=== PATIENT | female | born 1950 | race Caucasian/White ===

== ENCOUNTER 2019-07-22 10:46 | Emergency (ER) | payer MEDICARE, SELFPAY ==
[2019-07-22 10:47] VITALS: BP 144/72; PULSE 75; RESP 20; TEMP 36.6; O2SAT 97; BMI 31.4
--- NOTE | 2019-07-22 11:10 | ED.DCSUM_ITS ---
- ER Visit Summary Date of Service: 07/22/19 Chief Complaint: [Back pain] History of Present Illness: The patient is a 69 F [presents to the emergency department with complaint of back pain started 2 to 3 days ago. Patient describes a spasm that is intermittent in her low back. Patient states that it was initially kind of a mild tightness in her back over the last 2 to 3 days. Today in the shower she got a bent over to wash her hair and had increased spasm and discomfort. She denies any pain rating down her legs. She denies change in bowel bladder function. She denies weakness in extremities. Patient denies any trauma to her back. She denies urinary symptoms. She denies fever. Patient states that she was moving furniture last week.] Physical Examination: [HEENT-PERRLA, EOMI. Cranial nerves II through XII grossly intact. TMs clear. Mucous membranes moist. No adenopathy. Cardiovascular-regular rate and rhythm without murmur or ectopy Lungs-clear to auscultation, chest wall stable without crepitus or subcu emphysema Abdomen-normoactive bowel sounds, soft, nontender, no rebound or rigidity, no peritoneal signs. No pulsatile masses noted. Back exam-patient has some mild discomfort over the lower lumbar paraspinal muscular bilaterally. There is no tenderness in the midline. Negative straight leg raises. Deep tendon reflexes are plus 2 out of 4 bilaterally at the patella and Achilles. Patient has normal 5 extension. Patient has normal sensation to light touch. Extremities-intact ?4, normal range of motion, normal pulses, atraumatic] Test Results: [None indicated] Emergency Department Course and Treatment: [Was medicated with Dilaudid 0.5 mg IM as well as Valium 4 mg p.o.] Treatment Plan: [Will be given prescription for Robaxin at her request as well a s [place] for pain. Patient advised to follow-up with her primary care physician in 3 to 5 days. Patient advised to use heat to the area. Advised to return if worsening pain, weakness in extremities, change in bowel or bladder function, or conditions worsen anyway.] Disposition: [Discharged home in stable condition.] Impression: [Atraumatic low back pain] This note was generated with [employer] dictation software. It may contain incorrect words, spelling, and punctuation that were not noted in review of the chart prior to signing ED Disposition - Plan for ED Patient: Instructions: BACK SPASM, No Trauma, BACK AND NECK PAIN, General Prescriptions: Hydrocodone Bitart/Apap 5-325 [[place] 5MG-325MG] 1 tab PO Q4H PRN PRN 2 Days #20 tab PRN Reason: Pain Prescription Printed Methocarbamol [Robaxin] 500 mg PO TID #30 tab Prescription Printed Referrals: Douglas Pierre MD [Primary Care Provider] - 3-5 Days
[2019-07-22] MEDS: diazePAM 2 MG Tablet 4 MG PO (11:16)
[2019-07-22] MEDS: HYDROmorphone 0.5 MG/0.5 ML SYRINGE IM (11:17)
[2019-07-22] MEDS: Ondansetron 4 MG/2 ML Vial IM (11:17)
== END 2019-07-22 11:33 | disposition home or self-care (01) ==
PROVIDERS: Emergency Provider Emergency Medicine; Family Provider Nurse Practitioner Family; PCP Nurse Practitioner Family
DX: M54.5 Low back pain (principal); M62.830 Muscle spasm of back; Z79.82 Long term (current) use of aspirin; Z79.899 Other long term (current) drug therapy
CPT/HCPCS: 96372; 99283; J2405

== ENCOUNTER 2019-07-23 22:15 | Observation (INO) | payer MEDICARE, SELFPAY ==
[2019-07-22 10:47] VITALS: BMI 31.4
[2019-07-23 22:15] VITALS: BP 158/77; PULSE 74; RESP 16; TEMP 36.6; O2SAT 100; BMI 31.4
[2019-07-23] MEDS: Ketorolac 15 MG/ML Vial IV (23:19)
[2019-07-23] MEDS: LORazepam 2 MG/ML Syringe 1 MG IV (23:21)
--- NOTE | 2019-07-23 23:48 | ED.DCSUM_ITS ---
History of Present Illness Chief Complaint: Back Informant: Patient Onset: Yesterday Context: Sudden Onset Injury: Bending Timing: Intermittent Quality: Sharp, Aching Location: Lumbar - right, Buttock - right Current Severity: Severe Maximum Severity: Severe Worsened by: improves with: Movement Relieved by: Nothing Narrative: Abhijeet is a 69-year-old female with history of acid reflux presenting with continued low back pain. Patient states she was moving furniture last week and she felt tightness in her back. Yesterday she was bending over the shower and she suddenly had a bad spasm in her right lower back. She states she could not move it was so severe. She came to the ER and at that time was diagnosed with a back spasm. She was started on [place] and methocarbamol. Patient states the [place] is not helping her pain at all. She had mild improvement when she went home but now her symptoms have returned and are just as severe. She feels that the muscle relaxers not really helping either. She is having a hard time walking or doing anything because of the severity of her pain which is why she returned to the emergency room today. She continues to deny any saddle anesthesia, weakness of her lower extremities, fever, chills or other associated symptoms. She is had no change in her symptoms since her last ER visit. Patient denies any new trauma or injuries. Past Medical History - Allergies and Home Meds Allergies/Adverse Reactions: Allergies acetaminophen [From Darvocet-N] Adverse Reaction (Verified 07/23/19 22:17) Other cyclobenzaprine [From Flexeril] Adverse Reaction (Verified 07/23/19 22:17) Other propoxyphene [From Darvocet-N] Adverse Reaction (Verified 07/23/19 22:17) Other Past Medical History: - - GERD Surgical History: cholecystectomy, hysterectomy Lives: Spouse/ Significant Other Smoking Status: Never smoker - Family History Maternal Family History: Reports: - - Patient notes a maternal family history of heart disease, coronary disease status post CABG. Paternal Family History: Reports: - - Patient states she does not know her paternal family history. Review of Systems General: Denies: Chills, Fever, Sweats Eyes: Denies: Visual changes - bilaterally, Diplopia ENT: Denies: Rhinorrhea, Sore throat Cardiovascular: Denies: Chest pain, Palpitations Respiratory: Denies: Dyspnea, Cough, Dyspnea on exertion Gastrointestinal: Denies: Abdominal pain, Nausea, Vomiting, Diarrhea, Melena, Hematochezia Genitourinary: Reports: -, - - Denies incontinence. Denies: Dysuria, Hematuria, Frequency Musculoskeletal: Reports: Back pain, - - Muscle spasms in the back. Denies: Extremity Pain Skin: Denies: Rash, Wounds Neurological: Denies: Headache, Weakness, Numbness Physical Exam Vital Signs/Narrative: Vital Signs Temp Pulse Resp BP Pulse Ox 07/23/19 22:15 97.9 F 74 16 158/77 H 100 Inital Vital Signs reviewed: Yes General: Well nourished, Well developed Head: Normocephalic, Atraumatic Eyes: Perr[place], EOMI ENT: Moist mucous membranes, No rhinorrhea Neck: Supple, Nontender Cardiovascular: Regular rate, Regular rhythm, No murmurs Respiratory: No distress, CTA bilaterally, Chest nontender Abdomen: Soft, Nontender, Nondistended, Normal bowel sounds. Negative for: Guarding, Mass Back: Paraspinal Tenderness - Right lower lumbar and upper buttocks tenderness to palpation, Negative SLR - Right, Negative SLR - Left. Negative for: Spinal tenderness, CVA tenderness Extremeties: Nontender, No edema, Strong Pulses Skin: Normal color, No rash Neuro: Alert, Oriented, Normal Strength, Normal Sensation, - - Patient unable to walk during my exam secondary to her pain Psychological: Normal affect, Normal Mood Diagnostic/Tx/Re-eval Clinical Impression(s) from Imaging Studies Lumbar Spine X-Ray 07/24/19 00:48 IMPRESSION: 1. No acute abnormality of the lumbar spine. 2. Mild degenerative disc disease at L2/L3 and L5-S1. 3. Mild degenerative facet disease of the lower lumbar spine. Electronically Signed: Oliverio Lizama MD at 3:20 EST Tel , Service support , Laboratory Data 07/24/19 07/24/19 07/24/19 00:55 00:55 02:05 WBC 9.0 RBC 4.17 L Hgb 11.7 L Hct 37.4 MCV 89.7 MCH 28.1 MCHC 31.3 L RDW Std Deviation 46.5 H RDW Coeff of Christo 14.4 Plt Count 231 MPV 11.1 Immature Gran % (Auto) 0.300 Neut % (Auto) 57.4 Lymph % (Auto) 24.7 Kings % (Auto) 8.6 Eos % (Auto) 8.7 H Baso % (Auto) 0.3 Absolute Neuts (auto) 5.2 Absolute Lymphs (auto) 2.22 Nucleated RBC % 0 Sodium 142 Potassium 4.2 Chloride 112 H Carbon Dioxide 24.0 Anion Gap 6 BUN 28 H Creatinine 0.73 Estim Creat Clear Calc 49.12 Est GFR (MDRD) Af Amer 102 Est GFR (MDRD) Non-Af 84 BUN/Creatinine Ratio 38.1 H Glucose 105 Calcium 9.7 Urine Color Yellow Urine Clarity Clear Urine pH 6.0 Ur Specific [place] 1.025 Urine Protein 15 H Urine Glucose (UA) Normal Urine Ketones Negative Urine Occult Blood Negative Urine Nitrite Negative Urine Bilirubin Negative Urine Urobilinogen Normal Ur Leukocyte Esterase 500 H Urine RBC 0 SEEN Urine WBC 0-5 SEEN Ur Squamous Epith Cells 0-5 SEEN Urine Bacteria 0 SEEN Urine Mucus 0 SEEN - Medical Decision Making Patient is evaluating for recurrent low back spasms and pain. She is having a very hard time ambulating and performing her activities of daily living secondary to her pain. Physical exam is consistent only with back spasm. She does not have findings consistent with sciatica. She is on a midline tenderness. I am not concerned for cauda equina syndrome. She does not have any focal neurologic deficits. Patient is initially given IV Ativan and Toradol. She has no improvement of her pain. She still unable to even shift in the bed without having recurrence of her pain. Patient is been given IV morphine. Again patient does not have improvement of her symptoms on reevaluation. Discussed with her performing x-rays as well as some some screening labs in case there is metabolic cause of this. She is agreeable. X- ray does not show any acute process. CBC and BMP are grossly unremarkable. She does have a slight anemia but no signs of bleeding. Do not think this is related to her pain at this time. Patient is unable to ambulate still and agrees to admission for her intractable back pain. She agrees is not safe for her to go home because of her risk of fall and because of the severity of her symptoms. She is given another dose of morphine in the ER. Patient is admitted to the medicine service for further treatment and evaluation. Patient's urinalysis is reviewed after she is admitted and does show 500 leukoesterase. She not having urinary symptoms however a urine culture sent off. ED Disposition - Plan for ED Patient: Disposition: Acute Care Hospital [facility] Diagnosis: Intractable low back pain
--- NOTE | 2019-07-24 00:48 | RAD_ITS ---
STUDY: X-RAY - LUMBAR SPINE REASON FOR EXAM: Female, 69 years old. Low back pain TECHNIQUE: 6 view(s) of the lumbar spine were obtained. COMPARISON: None FINDINGS: Alignment of the lumbar spine demonstrates a mildly exaggerated lordosis. There is no focal listhesis. There is no substantial scoliosis. No vertebral body fracture. No pars defect. Mild stress endplate change within the intervertebral disc space at L2-L3 with relative preservation of disc height. Mild loss of height at the L5-S1 intervertebral disc space. Mild degenerative change of the facet joints at L4-L5 and L5-S1. The soft tissue structures are unremarkable. RAD/L/S Spine Min 4 Views IMPRESSION: 1. No acute abnormality of the lumbar spine. 2. Mild degenerative disc disease at L2/L3 and L5-S1. 3. Mild degenerative facet disease of the lower lumbar spine. Electronically Signed: Oliverio Lizama MD at 3:20 EST Tel , Service support ,
[2019-07-24] MEDS: Morphine 4 MG/ML Syringe IV ×2 (00:57→02:03)
[2019-07-24 00:58] VITALS: BP 136/57; PULSE 67; RESP 16; O2SAT 97
[2019-07-24 00:58] LABS: Absolute Lymphocyte Count 2.22 X10^3/uL (0.83-4.51); Absolute Neutrophil Count 5.2 X10^3/uL (2.0-7.7); Basophil# 0.03 X10^3/uL; Basophil% 0.3 % (0-1); Eosinophil# 0.78 X10^3/uL; Eosinophils% 8.7 % (0-5); Hematocrit 37.4 % (37-47); Hemoglobin 11.7 g/dL (12.0-15.0); Lymphocyte # 2.22 X10^3/ul (4.0); Lymphocyte % 24.7 % (19-41); Mean Corp Hgb Conc 31.3 g/dL (32-36); Mean Corpuscular Hgb 28.1 pg (27.0-32.0); Mean Corpuscular Volume 89.7 fL (81-99); Mean Platelet Vol. 11.1 fl (6.2-12.0); Monocyte# 0.77 X10^3/uL; Monocyte% 8.6 % (0-10); NRBC Flagged by Analyzer 0 % (0-5); Neutrophil # 5.17 X10^3/uL (2.7-7.7); Neutrophil % 57.4 % (47-70); Platelet Count 231 K/mm3 (150-450); RBC Distribution Width CV 14.4 % (11.6-14.6); RBC Distribution Width SD 46.5 fl (35.1-43.9); Red Blood Count 4.17 M/mm3 (4.2-5.4)
[2019-07-24 01:11] LABS: BUN 28 mg/dL (7-18); Creatinine, Serum 0.73 mg/dL (0.55-1.02); EST Glomerular Filtration Rate 84 mL/min (>60); Estimated Creatinine Clearance 49.12 ml/min; Glucose 105 mg/dL (74-106)
[2019-07-24 01:12] LABS: Anion Gap 6 (5-15); BUN/Creat Ratio 38.1 RATIO (10-20); Calcium,Total 9.7 mg/dL (8.5-10.1); Chloride 112 mmol/L (98-107); Est Glom Filt Rate - Afr Amer 102 mL/min (>60); Potassium 4.2 mmol/L (3.5-5.1); Sodium Level 142 mmol/L (136-145)
--- NOTE | 2019-07-24 01:54 | HP.PCM_ITS ---
Problem List (1) Intractable low back pain Status: Acute (2) GERD (gastroesophageal reflux disease) Status: Chronic Qualifiers: Esophagitis presence: esophagitis presence not specified Qualified Code(s): K21.9 - Gastro-esophageal reflux disease without esophagitis (3) Anemia Status: Chronic Qualifiers: Anemia type: unspecified type Qualified Code(s): D64.9 - Anemia, unspecified (4) Obesity (BMI 30.0-34.9) Status: Chronic History of Present Illness Date of Admission: 07/24/19 Chief Complaint: Lumbar back pain, spasms The patient is a 69 y/o F w/ PMHx: GERD with history of increased activity, moving items approximately 1 week prior with history of at that time of onset of low back pain however on day prior to current ED presentation patient noted to have bent over in the shower with severe onset of lumbar discomfort with severe spasms prompting ED evaluation at that time at which point she was given Valium, Robaxin and [place] with minimal improvement prompting return to the [facility] ED on 07/24/2019 as ongoing severe bilateral lumbar paraspinous back pain and spasms, worse with any movement, worse on the right side with some radiation to the right mid buttock region but no paresthesias or shooting pains down her legs, no loss of bowel or bladder. In the ED work-up included T 97.9, heart rate 74, BP 150/77 with improvement 136/57, respiratory rate 16, 100% on room air, CBC with W BC 9, hemoglobin 11.7, platelet 231 with increased eosinophils, BMP with chloride 112, BUN/creatinine 28/0.73, plain film of the lumbar spine with no acute findings. In the ED patient administered morphine 4 mg IV x2, Ativan 1 mg IV x1, Toradol 50 mg IV x1, Valium 5 mg p.o. x1. Past Medical History Past Medical History (Chronic Problems): Chronic Problems GERD (gastroesophageal reflux disease) (Chronic) Anemia (Chronic) Obesity (BMI 30.0-34.9) (Chronic) Allergies acetaminophen [From Darvocet-N] Adverse Reaction (Verified 07/23/19 22:17) Other cyclobenzaprine [From Flexeril] Adverse Reaction (Verified 07/23/19 22:17) Other propoxyphene [From Darvocet-N] Adverse Reaction (Verified 07/23/19 22:17) Other Home Medications: Ambulatory Orders Medication Instructions Recorded Aspirin 81 mg PO DAILY 07/22/19 Methocarbamol [Robaxin] 500 mg PO TID #30 tab 07/22/19 Omeprazole 20 mg PO DAILY 07/22/19 Surgical History: - - Hysterectomy, cholecystectomy. 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 Paternal History Items: - - Patient states she does not know her paternal family history. Review of Systems Constitutional: Reports: Malaise, Weakness, Fatigue. Denies: Chills, Fever, Weight Change HEENT: Denies: Head Aches, Sinus Congestion, Sinus Drainage Cardiovascular: Denies: Chest Pain, Palpitations Respiratory: Denies: Cough, Shortness of breath at rest, Sputum production Gastrointestinal: Denies: Abdominal Pain, Nausea, Vomiting Genitourinary: Denies: Dysuria Musculoskeletal: Reports: Back Pain, Joint Pain. Denies: Joint Tenderness Skin: Denies: Rash, Wounds Neurological: Denies: Numbness, Tingling, Focal weakness Psychiatric: Denies: Anxiety, Depression, Homicidal Ideations, Suicidal Ideations Hematologic/ Lymphatic: Reports: Anemia. Denies: Easy Bruising, Easy Bleeding VTE Information - Inpt Only VTE Present on Admission: No VTE Mechan Device Prophylaxis: SCD's VTE Pharm Prophylaxis ordered?: Yes Patient Problems: Active and Suspected Problems Intractable low back pain (Acute) Subjective: Laying back in the ED bed, mildly fatigued appearance, grimace with any attempted movement. Objective: Physical Examination: General: awake, alert, oriented x 3 and cooperative, laying back in the ED bed, no acute distress currently, grimacing and apparent discomfort with any movement attempts. Skin: normal color, turgor, no icterus, cyanosis. HEENT: AT/NC, EOMI, PERRLA, moderately dry MM, no carotid bruits or JVD noted. Lungs: CTA bilaterally, moderate effort, mild decrease BL bases, no rales, ronchi or wheezing. Heart: Regular rate and rhythm; no gallop, rub audible. Abdomen: soft, obese, NTTP, ND, normal BS, no HSM. Extremities: no cyanosis, clubbing, or edema, + SLR, discomfort with palpation bilateral paraspinous muscular regions, no tenderness with palpation of the lumbar spine directly. Neurological: patient awake, alert, oriented x 3; cognitive function intact; pupils equally reactive to light and accomodation; cranial nerves II-XII grossly normal, sensation intact, moving all 4 extremities although limited given acute presentation with lumbar back pain, worse with any leg movements, strength accordingly severely global decrease. Psychiatric: affect appears fatigued, uncomfortable, no acute evidence of dep ressive or anxiety feelings. - Physical Exam Vitals/I&O's: Vital Signs Temp Pulse Resp BP Pulse Ox 97.9 F 67 16 136/57 H 97 07/23/19 22:15 07/24/19 00:58 07/24/19 00:58 07/24/19 00:58 07/24/19 00:58 Oxygen Delivery Method Room Air Weight: 189 lb Body Mass Index (BMI) 31.4 Laboratory Results 07/24/19 00:55: WBC 9.0, RBC 4.17 L, Hgb 11.7 L, Hct 37.4, MCV 89.7, MCH 28.1, MCHC 31.3 L, RDW Std Deviation 46.5 H, RDW Coeff of Christo 14.4, Plt Count 231, MPV 11.1, Immature Gran % (Auto) 0.300, Neut % (Auto) 57.4, Lymph % (Auto) 24.7, [place] % (Auto) 8.6, Eos % (Auto) 8.7 H, Baso % (Auto) 0.3, Absolute Neuts (auto) 5.2, Absolute Lymphs (auto) 2.22, Nucleated RBC % 0 07/24/19 00:55: Sodium 142, Potassium 4.2, Chloride 112 H, Carbon Dioxide 24.0, Anion Gap 6, BUN 28 H, Creatinine 0.73, Estim Creat Clear Calc 49.12, Est GFR (MDRD) Af Amer 102, Est GFR (MDRD) Non-Af 84, BUN/Creatinine Ratio 38.1 H, Glucose 105, Calcium 9.7 Assessment/Plan All Active Problems Intractable low back pain (Acute) The patient is a 69 y/o F w/ PMHx: GERD with history of increased activity, moving items approximately 1 week prior with history of at that time of onset of low back pain however on day prior to current ED presentation patient noted to have bent over in the shower with severe onset of lumbar discomfort with severe spasms. 1. Acute Intractable Back Pain and Spasms: Plain films in the ED w/ no acute findings per ED read. Will admit to [facility], maintain on fall precautions, frequent positioning, po/IV pain regimen, maintain on scheduled IV toradol x 5, initiate medrol dose pack, initiate zanaflex PRN, initiate low dose gabapentin, anti- emetics, bowel regimen. Will consult PT and OT for evaluation. If ongoing intractable pain despite unremarkable initial plain film per ED read, may need to consider further more aggressive imaging. 2. Normocytic anemia, unclear of chronic: Admission hemoglobin 11.7, prior noted in 1312.4, recommend outpatient PCP reevaluation with iron panel, ferritin, vitamin B12 and folic acid consideration. 3. GERD: Maintained on famotidine. 4. DVT prophylaxis: SCDs, Lovenox. Code Visit OBSV E&M: [id number] Initial observation care L3
[2019-07-24] MEDS: diazePAM 5 MG Tablet PO (02:02)
[2019-07-24 02:11] LABS: Bacteria 0 SEEN /hpf (None Seen); Mucous, Urine 0 SEEN /hpf (<or=2+); Red Blood Cells-Urine 0 SEEN /hpf (0-5)
[2019-07-24 02:20] LABS: Color, Urine Yellow (Yellow); Glucose, Dipstick Normal (Normal); Ketone-Dipstick Negative (Negative); Leukocyte Esterase-Dipstick 500 /ul (Negative); Nitrite-Dipstick Negative (Negative); Occult Blood-Urine Negative /ul (Negative); Protein-Dipstick 15 mg/dl (Negative); Specific Gravity, Urine 1.025 (1.002-1.030); Urine Bilirubin Dipstick Negative (Negative); Urine Clarity Clear (Clear); Urine Urobilinogen Normal (Normal)
[2019-07-24 02:28] LABS: Squamous Epithelial Cells - UA 0-5 SEEN /hpf (5-10); White Blood Cells 0-5 SEEN /hpf (0-5)
[2019-07-24 02:53] VITALS: BMI 31.8
[2019-07-24 02:55] VITALS: BP 137/62; PULSE 60; RESP 16; TEMP 36.4; O2SAT 96
[2019-07-24] MEDS: 0.9% Normal Saline 1,000 ML 125 ML IV ×2 (03:20→11:25)
[2019-07-24] MEDS: 0.9% Saline Lock 10 ML Syringe IV ×2 (03:21→06:23)
[2019-07-24] MEDS: Gabapentin 100 MG Capsule PO ×3 (03:50→16:14)
[2019-07-24] MEDS: tiZANidine HCl 2 MG Tablet 4 MG PO ×3 (03:51→21:49)
[2019-07-24 06:02] LABS: Absolute Lymphocyte Count 2.36 X10^3/uL (0.83-4.51); Absolute Neutrophil Count 4.1 X10^3/uL (2.0-7.7); Basophil# 0.04 X10^3/uL; Basophil% 0.5 % (0-1); Eosinophil# 0.88 X10^3/uL; Hematocrit 34.9 % (37-47); Hemoglobin 11.1 g/dL (12.0-15.0); Lymphocyte # 2.36 X10^3/ul (4.0); Lymphocyte % 29.5 % (19-41); Mean Corp Hgb Conc 31.8 g/dL (32-36); Mean Corpuscular Hgb 28.4 pg (27.0-32.0); Mean Corpuscular Volume 89.3 fL (81-99); Mean Platelet Vol. 11.4 fl (6.2-12.0); Monocyte# 0.62 X10^3/uL; Monocyte% 7.8 % (0-10); NRBC Flagged by Analyzer 0 % (0-5); Neutrophil # 4.07 X10^3/uL (2.7-7.7); Neutrophil % 50.9 % (47-70); Platelet Count 217 K/mm3 (150-450); RBC Distribution Width CV 14.5 % (11.6-14.6); RBC Distribution Width SD 46.7 fl (35.1-43.9); Red Blood Count 3.91 M/mm3 (4.2-5.4)
[2019-07-24] MEDS: Ketorolac 15 MG/ML Vial IV ×3 (06:22→21:49)
[2019-07-24 06:23] LABS: Anion Gap 7 (5-15); BUN 26 mg/dL (7-18); BUN/Creat Ratio 37.6 RATIO (10-20); Calcium,Total 9.3 mg/dL (8.5-10.1); Chloride 110 mmol/L (98-107); Creatinine, Serum 0.69 mg/dL (0.55-1.02); EST Glomerular Filtration Rate 90 mL/min (>60); Est Glom Filt Rate - Afr Amer 109 mL/min (>60); Estimated Creatinine Clearance 49.12 ml/min; Glucose 102 mg/dL (74-106); Potassium 3.8 mmol/L (3.5-5.1); Sodium Level 142 mmol/L (136-145)
[2019-07-24] MEDS: Enoxaparin 40 MG/0.4 ML Syringe SC (06:24)
[2019-07-24 08:48] VITALS: BP 137/73; PULSE 58; RESP 18; TEMP 36.5; O2SAT 99
[2019-07-24] MEDS: Aspirin 81 MG TAB.CHEW PO (08:50)
[2019-07-24] MEDS: Famotidine 20 MG Tablet PO ×2 (08:50→21:49)
[2019-07-24] MEDS: MethylPREDNISolone DosePak 4 MG BOX PO ×4 (08:51→21:50)
--- NOTE | 2019-07-24 09:08 | CCHN_ITS ---
Hospitalist Note Patient back pain has improved. Still she feels back pain exaggerated on changing posture and moving. Vitals are stable. There is mild tenderness over lumbar spine. X-rays reviewed and discussed with the patient which shows mild degenerative disc disease at L2-L3 and L5-S1 and mild degenerative facet disease of lower lumbar spine. On pain medication, muscle relaxant and methylprednisolone. PT and OT ordered. Clinical Impression(s) from Imaging Studies Lumbar Spine X-Ray 07/24/19 00:48 IMPRESSION: 1. No acute abnormality of the lumbar spine. 2. Mild degenerative disc disease at L2/L3 and L5-S1. 3. Mild degenerative facet disease of the lower lumbar spine. Laboratory Results 07/24/19 00:55: WBC 9.0, RBC 4.17 L, Hgb 11.7 L, Hct 37.4, MCV 89.7, MCH 28.1, MCHC 31.3 L, RDW Std Deviation 46.5 H, RDW Coeff of Christo 14.4, Plt Count 231, MPV 11.1, Immature Gran % (Auto) 0.300, Neut % (Auto) 57.4, Lymph % (Auto) 24.7, [place] % (Auto) 8.6, Eos % (Auto) 8.7 H, Baso % (Auto) 0.3, Absolute Neuts (auto) 5.2, Absolute Lymphs (auto) 2.22, Nucleated RBC % 0 07/24/19 00:55: Sodium 142, Potassium 4.2, Chloride 112 H, Carbon Dioxide 24.0, Anion Gap 6, BUN 28 H, Creatinine 0.73, Estim Creat Clear Calc 49.12, Est GFR (MDRD) Af Amer 102, Est GFR (MDRD) Non-Af 84, BUN/Creatinine Ratio 38.1 H, Glucose 105, Calcium 9.7 07/24/19 02:05: Urine Color Yellow, Urine Clarity Clear, Urine pH 6.0, Ur Specific [place] 1.025, Urine Protein 15 H, Urine Glucose (UA) Normal, Urine Ketones Negative, Urine Occult Blood Negative, Urine Nitrite Negative, Urine Bilirubin Negative, Urine Urobilinogen Normal, Ur Leukocyte Esterase 500 H, Urine RBC 0 SEEN, Urine WBC 0-5 SEEN, Ur Squamous Epith Cells 0-5 SEEN, Urine Bacteria 0 SEEN, Urine Mucus 0 SEEN 07/24/19 05:40: WBC 8.0, RBC 3.91 L, Hgb 11.1 L, Hct 34.9 L, MCV 89.3, MCH 28.4, MCHC 31.8 L, RDW Std Deviation 46.7 H, RDW Coeff of Christo 14.5, Plt Count 217, MPV 11.4, Immature Gran % (Auto) 0.300, Neut % (Auto) 50.9, Lymph % (Auto) 29.5, [place] % (Auto) 7.8, Eos % (Auto) 11.0 H, Baso % (Auto) 0.5, Absolute Neuts (auto) 4.1, Absolute Lymphs (auto) 2.36, Nucleated RBC % 0 07/24/19 05:40: Sodium 142, Potassium 3.8, Chloride 110 H, Carbon Dioxide 25.0, Anion Gap 7, BUN 26 H, Creatinine 0.69, Estim Creat Clear Calc 49.12, Est GFR (MDRD) Af Amer 109, Est GFR (MDRD) Non-Af 90, BUN/Creatinine Ratio 37.6 H, Glucose 102, Calcium 9.3
--- NOTE | 2019-07-24 10:54 | CASEMGMT ---
SW met w/pt in room in regard to prior level of function and discharge plan. PCP: Douglas Mariscal Specialists: None Pharmacy: [facility] in [place] Prescription/Insurance Coverage: [facility] LNOK: , daughter in [place] LW/POA: SW spoke w/pt, she thinks has forms completed but is not sure where they are. Pt states she and have been talking about going to completions manager and getting forms completed. SW gave pt two sets of LW/POA forms w/SW rack card. SW explained when she is feeling better can make appt w/SW for both she and her to complete the forms. Pt states understanding. Living arrangements: Pt lives in a one story home w/ Prior level of function: Pt fully independent with all ADL's. DME/HHC: Pt has not needed DME in the past, has been using a cane the last couple of days. Pt has no history of HHC or SNF placement. Plan: Home SW spoke w/pt about discharge plan, she anticipates being able to return home. Pt reports to already be feeling better than when she came into the hospital. PT/OT is pending at this time. SW explained that SW/CM will follow and see how she does with PT/OT, and are available to discuss discharge options w/pt at any time. SW offered [facility] referral, pt declined. At this time plan is home, will come back to see pt should the plan change and a higher level of care is needed or home care is indicated. ERNIE Chun
[2019-07-24 14:01] VITALS: BP 136/84; PULSE 63; RESP 18; TEMP 36.9; O2SAT 100
[2019-07-24 20:50] VITALS: BP 157/73; PULSE 81; RESP 18; TEMP 36.8; O2SAT 100
[2019-07-25 03:21] VITALS: BP 167/79; PULSE 66; RESP 18; TEMP 36.8; O2SAT 98
[2019-07-25 03:30] VITALS: PULSE 68
[2019-07-25] MEDS: hydrALAZINE 20 MG/ML Vial 10 MG IV (03:30)
[2019-07-25] MEDS: Ketorolac 15 MG/ML Vial IV ×2 (05:15→13:09)
[2019-07-25] MEDS: Enoxaparin 40 MG/0.4 ML Syringe SC (05:15)
[2019-07-25] MEDS: tiZANidine HCl 2 MG Tablet 4 MG PO ×3 (05:15→23:00)
[2019-07-25] MEDS: Gabapentin 100 MG Capsule PO ×3 (09:18→17:13)
[2019-07-25] MEDS: Famotidine 20 MG Tablet PO ×2 (09:18→23:03)
[2019-07-25] MEDS: Acetaminophen 325 MG Tablet 650 MG PO (09:18)
[2019-07-25] MEDS: Aspirin 81 MG TAB.CHEW PO (09:18)
[2019-07-25] MEDS: MethylPREDNISolone DosePak 4 MG BOX PO ×3 (09:19→17:13)
[2019-07-25 09:20] VITALS: BP 127/71; PULSE 71; RESP 18; TEMP 36.5; O2SAT 97
--- NOTE | 2019-07-25 10:53 | OT ---
Gisele edu pt on use of long handled equipment for LB dressing and bathing to manage pain and inc indep. Rec shower seat and toilet seat riser to inc safety and indep with bathing and toilet transfers respectively as pt is limited by back pain. Pt verbalizes understanding.
[2019-07-25 11:05] VITALS: O2SAT 97
--- NOTE | 2019-07-25 11:21 | CASEMGMT ---
SHANKAR CM Note: Per PT/OT, pt may benefit from skilled therapy. Pt continues to have back spasms. Dr. Ramírez updated and will evaluate pt. Discussed PT/OT recommendations for equipment needs. Script
--- NOTE | 2019-07-25 11:24 | MRI_ITS ---
STUDY: MRI LUMBAR SPINE WITHOUT CONTRAST REASON FOR EXAM: Female, 69 years old. Back pain, left hip pain. TECHNIQUE: Standardized fat and water weighted pulse sequences were obtained in the sagittal and axial planes. COMPARISON: X-ray 07/24/2019. FINDINGS: T12-L1: Normal endplates. Normal disc height, hydration and morphology. Normal bilateral facet joints. Normal central canal and bilateral lateral recesses. Normal bilateral intervertebral neural foramina. Normal lumbar lordosis. There is no substantial scoliosis. Normal conus medullaris that terminates at the T12-L1 level. L1-2: Normal endplates. Normal disc height, hydration and morphology. Normal bilateral facet joints. Normal central canal and bilateral lateral recesses. Normal bilateral intervertebral neural foramina. L2-3: Normal endplates. Disc dehydration and mild disc space narrowing. 3 mm degenerative retrolisthesis. No disc protrusion or canal stenosis. Foramina are patent. L3-4: Normal endplates. Disc dehydration and mild disc space narrowing. Normal bilateral facet joints. Normal central canal and bilateral lateral recesses. Normal bilateral intervertebral neural foramina. L4-5: Normal endplates. Disc dehydration. Mild facet hypertrophy. Normal central canal and bilateral lateral recesses. Normal bilateral intervertebral neural foramina. L5-S1: Normal endplates. Disc dehydration. Small, central, noncompressive disc protrusion. Mild facet hypertrophy. Mild inferior foraminal encroachment due to spurring. 1.8 cm Tarlov cyst at the S2 level. Normal visualized sacral ala. Normal visualized paraspinous soft tissue structures. MRI/Spine Lumbar (Routine) IMPRESSION: 1. Noncompressive L5-S1 disc protrusion. 2. Mild degenerative changes are detailed above. 3. S2 Tarlov cyst. Electronically Signed: Ivonne Ceballos MD at 20:40 EST Tel , Service support ,
--- NOTE | 2019-07-25 11:30 | CASEMGMT ---
SW met w/pt in room in regard to plan, as per therapy pt may need to go somewhere for skilled. SW gave pt list of nursing homes that take pt's insurance. Pt is not certain she wants to go to a jail, and explained she is feeling worse today. Pt asked about an MRI. SW explained will let physician know and will follow up after. SW spoke w/physician, he will see pt and let SW know the plan. ERNIE Chun
--- NOTE | 2019-07-25 12:08 | CASEMGMT ---
RN CM Note: Per PT/OT, pt may benefit from skilled therapy. Pt continues to have back spasms. Dr. Ramírez updated and will evaluate pt. Discussed PT/OT recommendations for equipment needs. Script for outpt therapy and recommended equipment in front of chart in event pt returns home instead of SNF. TCU is [facility] for pt, pt states she would only go to TCU for skilled therapy. SW aware and referral made. Solomon DOUGLASN RN ACM
[2019-07-25] MEDS: 0.9% Saline Lock 10 ML Syringe IV ×3 (13:09→23:05)
--- NOTE | 2019-07-25 13:45 | CASEMGMT ---
Referral to TCU made, precert pending. SW let Delaney in TCU know via voicemail to notify other SW as this SW will be leaving shortly. SW let pt and know that the precert is pending, and that the SW will let her know today if we hear from insurance, if she is approved or not. SW explained we may not hear back today and if now, SW or CM should stop by tomorrow to see if she wants to stay through the weekend waiting for insurance or if she feels well enough to go home. Pt then spoke about how this back pain came about, SW offered support. 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 SW encouraged pt to call the policy to see what is covered and how much. SW explained that the facilities do not work w/watermelon harvesting supervisor insurance, that if pt was denied by medical insurance for SNF, it would be self pay if she still wanted to go. She would then need to contact the watermelon harvesting supervisor insurance to see what is covered and they would reimburse her. Pt states understanding, states if she was denied she would probably just go home at that point. SW will continue to follow, if Delaney hears back today from insurance on precert for TCU she will let other SW know. ERNIE Chun
[2019-07-25 15:20] VITALS: BP 116/60; PULSE 67; RESP 18; TEMP 36.5; O2SAT 98
--- NOTE | 2019-07-25 16:55 | NURSING ---
This nurse is aware of Vitals taken recently by Palomo Brandt RN
[2019-07-25] MEDS: Morphine 2 MG/ML Syringe IV (18:36)
--- NOTE | 2019-07-25 19:36 | PCM.PROGNOTE ---
Patient Problems: Active and Suspected Problems Intractable low back pain (Acute) Subjective: Patient was seen and examined today, she agreed to go to a skilled care facility and we received approval for her to go to TCU late this afternoon. Unfortunately, patient had not received her MRI which I had ordered earlier in the day, I do not feel comfortable with the patient going to skilled care without the results of her MRI. I talked at length with the patient this morning, patient appears to have some radicular pain radiating into the left upper buttocks, I think it is possible that she could have a disc protrusion so the patient has requested an MRI and I think this is reasonable. I have decided to continue the patient's corticosteroids for now and her muscle relaxants and Toradol. At the time of this dictation, her MRI result is pending. - Physical Exam Vitals/I&O's: Vital Signs Temp Pulse Resp BP Pulse Ox 97.7 F L 67 18 116/60 98 07/25/19 15:20 07/25/19 15:20 07/25/19 15:20 07/25/19 15:20 07/25/19 15:20 Oxygen Delivery Method Room Air Weight: 86.636 kg Body Mass Index (BMI) 31.8 Intake and Output for Last 24 Hours 07/23/19 07/24/19 07/25/19 23:59 23:59 23:59 Intake Total 2795.42 / 2795.42 350 / 350 Output Total 1100 / 1100 2550 / 2550 Balance 1695.42 / 1695.42 -2200 / -2200 General: Alert, Oriented x3, Cooperative, No apparent distress, Well developed, Well nourished HEENT: Atraumatic, PERRLA, EOMI, Normocephalic Oral: Moist Mucosa Neck: Supple, Trachea Midline, Thyroid Normal Size and Texture Lungs: Clear to auscultation, Normal air movement, No rhonchi, No wheeze, No rales Cardiovascular: Regular rate, Regular Rhythm, Normal S1, Normal S2, No murmurs, PMI Normal, No rub noted Abdomen: Bowel Sounds Present, Soft, Non Tender, Non-Distended Extremities: No clubbing, No cyanosis, No edema, Capillary Refill Less than 3 Seconds Skin: No rashes, No breakdown Musculoskeletal: - - There is limited range of motion to flexion and extension in the lumbar spine due to pain, sidebending in the lumbar spine also causes discomfort in the lower lumbar region Neurological: Cranial nerves II-XII grossly intact, Neuro grossly intact, Sensory exam intact to light touch and pain Psych/Mental Status: Normal Affect, Appropriate, Alert and oriented to time, place, person, mood and affect Microbiology Past 72 Hours 07/24/19 03:45 Urine, Clean Catch Urine Culture - Preliminary Beta streptococcus Current Medications Acetaminophen (Tylenol) 650 mg PO Q6H PRN PRN PRN Reason: Non-cardiac pain (mod-severe) Last Admin: 07/25/19 09:18 Dose: 650 mg Documented by: Hydrocodone Bitart/Acetaminophen ([place] 5mg-325mg) 1 - 2 tablet PO Q4H PRN PRN PRN Reason: Pain Score 4-10/10 Al Hydroxide/Mg Hydroxide (Mylanta Ii) 15 - 30 ml PO Q4H PRN PRN PRN Reason: INDIGESTION Albuterol Sulfate (Ventolin Aerosols) 2.5 mg INHALATION Q2H PRN PRN PRN Reason: dyspnea, wheezing Aspirin (Aspirin, Baby) 81 mg PO DAILYCM [facility] Last Admin: 07/25/19 09:18 Dose: 81 mg Documented by: Dextrose (D50w Syringe) 0 gm IV X1 PRN; Protocol PRN Reason: Hypoglycemia Enoxaparin Sodium (Lovenox) 40 mg SC DAILY@0600 [facility] Last Admin: 07/25/19 05:15 Dose: 40 mg Documented by: Famotidine (Pepcid) 20 mg PO BID [facility] Last Admin: 07/25/19 09:18 Dose: 20 mg Documented by: Gabapentin (Neurontin) 100 mg PO TIDCM [facility] Last Admin: 07/25/19 17:13 Dose: 100 mg Documented by: Glucagon () 1 mg IM .X1 PRN PRN Reason: Hypoglycemia Hydralazine HCl (Apresoline Iv) 10 mg IV Q4H PRN PRN PRN Reason: SBP > 160 Last Admin: 07/25/19 03:30 Dose: 10 mg Documented by: Sodium Chloride () 250 mls @ 15 mls/hr IV .[id number] PRN PRN Reason: Saline Flush Magnesium Hydroxide (Milk Of Magnesia) 30 ml PO DAILY PRN PRN Reason: Constipation Melatonin (Melatonin) 3 mg PO QHS PRN PRN PRN Reason: INSOMNIA Methylprednisolone (Medrol Dosepak) 4 mg PO 0800,1200,1700 MARGE; Taper Stop: 07/29/19 08:59 Last Admin: 07/25/19 17:13 Dose: 4 mg Documented by: Morphine Sulfate () 1 - 2 mg IV Q4H PRN PRN PRN Reason: Pain Score 1-10/10 Last Admin: 07/25/19 18:36 Dose: 2 mg Documented by: Ondansetron HCl (Zofran) 4 mg IV Q8H PRN PRN PRN Reason: NAUSEA/VOMITING Psyllium Hydrophilic Mucilloid (Metamucil) 1 packet PO DAILY PRN PRN PRN Reason: Constipation Senna/Docusate Sodium (Senokot-S, Sharon-Colace) 2 tablet PO BID PRN PRN PRN Reason: Constipation Sodium Chloride () 10 - 40 ml IV UD PRN PRN Reason: SALINE FLUSH Last Admin: 07/25/19 18:38 Dose: 10 ml Documented by: Tizanidine HCl (Zanaflex) 4 mg PO Q8 [facility] Last Admin: 07/25/19 13:08 Dose: 4 mg Documented by: Medical Necessity - Tobacco Use Smoking Status: Never smoker Tobacco Use: Non-smoker Assessment/Plan All Active Problems Intractable low back pain (Acute) #1 intractable back pain-etiology unclear at this point, await MRI scan, continue IV Decadron, muscle relaxants, and analgesics #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
[2019-07-25 21:20] VITALS: BP 155/70; PULSE 75; RESP 18; TEMP 36.8; O2SAT 96
[2019-07-25] MEDS: dexAMETHasone 4 MG/ML Vial IV (23:11)
[2019-07-25] MEDS: MELATONIN 3 MG TABLET PO (23:28)
[2019-07-26] VITALS (17 sets, daily range): BP systolic 126–153; BP diastolic 62–84; PULSE 59–144; RESP 16–22; TEMP 36.4–37; O2SAT 94–100
[2019-07-26] MEDS: Morphine 2 MG/ML Syringe IV (03:45)
[2019-07-26] MEDS: 0.9% Saline Lock 10 ML Syringe IV (05:37)
[2019-07-26] MEDS: dexAMETHasone 4 MG/ML Vial IV ×2 (05:38→11:53)
[2019-07-26] MEDS: tiZANidine HCl 2 MG Tablet 4 MG PO ×3 (05:38→21:05)
[2019-07-26] MEDS: Enoxaparin 40 MG/0.4 ML Syringe SC (05:38)
--- NOTE | 2019-07-26 06:56 | EKG12_ITS ---
Test Reason : Blood Pressure : / mmHG Vent. Rate : 122 BPM Atrial Rate : 127 BPM P-R Int : 000 ms QRS Dur : 082 ms QT Int : 272 ms P-R-T Axes : 000 001 170 degrees QTc Int : 387 ms Atrial fibrillation Low voltage QRS Septal infarct , age undetermined Abnormal ECG When compared with ECG of 23-SEP-2012 13:30, Atrial fibrillation has replaced Sinus rhythm Vent. rate has increased BY 40 BPM Septal infarct is now Present Nonspecific T wave abnormality now evident in Inferior leads Nonspecific T wave abnormality, worse in Anterolateral leads Confirmed by USHA SCHNEIDER ([id number]), copy editor GERARD HAMILTON ([id number]) on 08/01/2019 11:50:55 AM Referred By: Confirmed By:USHA SCHNEIDER
--- NOTE | 2019-07-26 07:33 | NURSING ---
pt c/o pounding heart, pt heart rate irregular-12 lead obtained-appears to be in a-fib-dr andrews paged via phone then through computer with no response, then attempt made to page dr carter who was on through night -pt placed on tele #11
[2019-07-26] MEDS: dilTIAZem 25 MG/5 ML Vial 20 MG IV BOLUS (08:30)
--- NOTE | 2019-07-26 08:36 | NURSING ---
kinzag supervisor [facility] estrella kwan gav 20 mg cardizem iv, heart rate now in the 90's
--- NOTE | 2019-07-26 08:39 | NURSING ---
report given to peng/virginie kwan and pt transferred to PCU via bed w/ ernst and myron kwan on tele peng updated that pt recieved 20 mg cardizem iv and that it is not documented on nov because it has not been acknowledged peng voices understanding
--- NOTE | 2019-07-26 08:42 | NURSING ---
@ 0820 pt becoming more symptomatic, pt c/o sob, having episodes of hr in 150's, still appearing to be a-fib pt placed on 2l o2 n/c-pt a&o x3 @ 0830, dr andrews in room seeing pt
--- NOTE | 2019-07-26 08:48 | ECHOD_ITS ---
Reason For Study: Afib, Aflutter Procedure This was a 2D Doppler, Color Flow transthoracic echocardiogram. Exam performed portable in patient room. Left Ventricle Normal LV size. Left ventricular systolic function is normal. The estimated ejection fraction is 60 %. Stage 2 diastolic dysfunction. No regional wall motion abnormalities noted. Right Ventricle Normal RV size. Normal systolic function. Atria Normal left atrium. Normal right atrium. Mitral Valve Normal mitral valve. Tricuspid Valve Normal tricuspid valve. Mild (1+) tricuspid valve insufficiency. Pulmonary artery systolic pressure is 30 mmHg. Aortic Valve Trisinus/trileaflet aortic valve. Mild (1+) aortic valve insufficiency. Pulmonic Valve The pulmonic valve is not well visualized. Great Vessels Normal aortic root. The pulmonary artery is normal size. Normal inferior vena cava. Pericardium/Pleural No pericardial effusion. MMode/2D Measurements & Calculations LVIDd: 4.2 cm IVSd: 1.1 cm Ao root diam: 2.5 cm LVIDs: 2.4 cm LVPWd: 0.93 cm RVDd: 3.0 cm FS: 42.7 % LAV(MOD-bp): 46.4 ml LVAd ap4: 23.8 cm2 SV(MOD-sp4): 39.6 ml LAV(MOD-bp) Indexed: 24.0 ml/m2 EDV(MOD-sp4): 66.2 ml LAV(MOD-sp2): 47.5 ml EDV(sp4-el): 68.4 ml LAV(MOD-sp4): 38.6 ml LVAs ap4: 13.9 cm2 ESV(MOD-sp4): 26.6 ml ESV(sp4-el): 27.6 ml EF(MOD-sp4): 59.8 % EF(sp4-el): 59.7 % SV(sp4-el): 40.8 ml LA A4 area: 16.1 cm2 LA dimension(2D): 4.0 cm RA A4 area: 12.0 cm2 Doppler Measurements & Calculations MV E max oli: 119.5 cm/sec Lat Peak E' Oli: 9.6 cm/sec Med Peak E' Oli: 8.4 cm/sec MV A max oli: 72.5 cm/sec E/E' lat: 12.4 E/E' med: 14.2 MV E/A: 1.6 Ao V2 max: 153.7 cm/sec AI max oli: 452.8 cm/sec LV V1 max: 128.1 cm/sec Ao max P.4 mmHg AI max P.0 mmHg LV V1 max P.6 mmHg Ao V2 mean: 110.8 cm/sec Ao mean P.4 mmHg AI dec slope: 294.0 cm/sec2 Ao V2 VTI: 35.4 cm AI P1/2t: 451.1 msec PA V2 max: 88.0 cm/sec TR max oli: 261.5 cm/sec TR max P.4 mmHg Interpretation Summary Normal LV size. Left ventricular systolic function is normal. The estimated ejection fraction is 60 %. Stage 2 diastolic dysfunction. Mild (1+) aortic valve insufficiency. Ordering Physician: Lucio Ramírez Referring Physician: Douglas Mariscal Performed By: Julissa Busby, ANA MARIA, RVT
[2019-07-26] MEDS: Famotidine 20 MG Tablet PO ×2 (09:05→21:05)
[2019-07-26] MEDS: Aspirin 81 MG TAB.CHEW PO (09:06)
[2019-07-26] MEDS: Gabapentin 100 MG Capsule PO ×3 (09:06→16:51)
[2019-07-26] MEDS: Metoprolol Tartrate 50 MG Tablet PO ×2 (09:16→11:16)
[2019-07-26] MEDS: dilTIAZem 25 MG/5 ML Vial 10 MG IV BOLUS (11:17)
--- NOTE | 2019-07-26 11:54 | EKG12_ITS ---
Test Reason : RHYTHM CHECK Blood Pressure : / mmHG Vent. Rate : 067 BPM Atrial Rate : 067 BPM P-R Int : 132 ms QRS Dur : 080 ms QT Int : 368 ms P-R-T Axes : 023 -07 074 degrees QTc Int : 388 ms Normal sinus rhythm Normal ECG When compared with ECG of 23-SEP-2012 13:30, No significant change was found Confirmed by USHA SCHNEIDER ([id number]), editorial director GERARD HAMILTON ([id number]) on 08/01/2019 11:55:21 AM Referred By: GREGORY Confirmed By:USHA SCHNEIDER
--- NOTE | 2019-07-26 13:19 | NURSING ---
Telemetry shows patient back in Sinus Rhythm, called for [address] Ramírez notified.
[2019-07-26] MEDS: Magnesium Hydroxide 30 ML UDC PO (13:36)
--- NOTE | 2019-07-26 13:39 | NURSING ---
Patient stated that about 30 minutes ago, she looked over at the wall and was hallucinating, and saw trees moving up and down on the cupboard door. She states that it only lasted about 10 minutes, and is gone now. she denies any auditory hallucinations. she denies any further visual hallucinations and is alert and oriented x4 at this time. she is pleasant, cooperative, and appropriate. Dr. Ramírez notified.
--- NOTE | 2019-07-26 17:56 | PN_ITS ---
Patient Problems: Active and Suspected Problems Intractable low back pain (Acute) Subjective: Patient was seen and examined today, earlier this morning she went into atrial fibrillation with a rapid ventricular response, patient was complaining of palpitations, she did not complain of any chest pain or shortness of breath at this examiner. Patient was transferred to PCU where she was given metoprolol, she had been given IV Cardizem before her transfer from [place] [id number]. Patient was given additional metoprolol p.o. approximately 11 AM this morning and converted spontaneously. Patient had an echocardiogram today which showed normal EF without evidence of valvular heart disease. I have elected not to anticoagulate this patient at this time, I discussed this with her and I also decided to stop her metoprolol and monitor her on telemetry. I have decided to stop the patient's IV Decadron-she started to complain of feeling confused and I decided that I did not want to trigger any psychosis with the IV Decadron. - Physical Exam Vitals/I&O's: Vital Signs Temp Pulse Resp BP Pulse Ox 98.1 F 64 16 126/62 H 97 07/26/19 14:53 07/26/19 14:53 07/26/19 14:53 07/26/19 14:53 07/26/19 14:53 Oxygen Flow Rate (L/min) 2 Oxygen Delivery Method Room Air Weight: 86.636 kg Body Mass Index (BMI) 31.8 Intake and Output for Last 24 Hours 07/24/19 07/25/19 07/26/19 23:59 23:59 23:59 Intake Total 2795.42 / 2795.42 600 / 600 1050 / 1050 Output Total 1100 / 1100 2550 / 2550 1000 / 1000 Balance 1695.42 / 1695.42 -1950 / -1950 50 / 50 General: Alert, Oriented x3, Cooperative, No apparent distress, Well developed, Well nourished HEENT: Atraumatic, PERRLA, EOMI, Normocephalic Oral: Moist Mucosa Neck: Supple, Trachea Midline, Thyroid Normal Size and Texture Lungs: Clear to auscultation, Normal air movement, No rhonchi, No wheeze, No rales Cardiovascular: Regular rate, Regular Rhythm, Normal S1, Normal S2, No murmurs, No Ectopic Activity, PMI Normal, No Gallop Abdomen: Bowel Sounds Present, Soft, Non Tender, Non-Distended Extremities: No clubbing, No cyanosis, No edema, Capillary Refill Less than 3 Seconds Skin: No rashes, No breakdown Neurological: Cranial nerves II-XII grossly intact, Neuro grossly intact, Sensory exam intact to light touch and pain, Coordination normal Psych/Mental Status: Normal Affect, Appropriate, Alert and oriented to time, place, person, mood and affect Microbiology Past 72 Hours 07/24/19 03:45 Urine, Clean Catch Urine Culture - Final Streptococcus agalactiae (B) Current Medications Acetaminophen (Tylenol) 650 mg PO Q6H PRN PRN PRN Reason: Non-cardiac pain (mod-severe) Last Admin: 07/25/19 09:18 Dose: 650 mg Documented by: Hydrocodone Bitart/Acetaminophen ([place] 5mg-325mg) 1 - 2 tablet PO Q4H PRN PRN PRN Reason: Pain Score 4-10/10 Al Hydroxide/Mg Hydroxide (Mylanta Ii) 15 - 30 ml PO Q4H PRN PRN PRN Reason: INDIGESTION Albuterol Sulfate (Ventolin Aerosols) 2.5 mg INHALATION Q2H PRN PRN PRN Reason: dyspnea, wheezing Aspirin (Aspirin, Baby) 81 mg PO DAILYCM [facility] Last Admin: 07/26/19 09:06 Dose: 81 mg Documented by: Dextrose (D50w Syringe) 0 gm IV X1 PRN; Protocol PRN Reason: Hypoglycemia Enoxaparin Sodium (Lovenox) 40 mg SC DAILY@0600 [facility] Last Admin: 07/26/19 05:38 Dose: 40 mg Documented by: Famotidine (Pepcid) 20 mg PO BID [facility] Last Admin: 07/26/19 09:05 Dose: 20 mg Documented by: Gabapentin (Neurontin) 100 mg PO TIDCM [facility] Last Admin: 07/26/19 16:51 Dose: 100 mg Documented by: Glucagon () 1 mg IM .X1 PRN PRN Reason: Hypoglycemia Sodium Chloride () 250 mls @ 15 mls/hr IV .[id number] PRN PRN Reason: Saline Flush Magnesium Hydroxide (Milk Of Magnesia) 30 ml PO DAILY PRN PRN Reason: Constipation Last Admin: 07/26/19 13:36 Dose: 30 ml Documented by: Melatonin (Melatonin) 3 mg PO QHS PRN PRN PRN Reason: INSOMNIA Last Admin: 07/25/19 23:28 Dose: 3 mg Documented by: Morphine Sulfate () 1 - 2 mg IV Q4H PRN PRN PRN Reason: Pain Score 1-10/10 Last Admin: 07/26/19 03:45 Dose: 2 mg Documented by: Ondansetron HCl (Zofran) 4 mg IV Q8H PRN PRN PRN Reason: NAUSEA/VOMITING Psyllium Hydrophilic Mucilloid (Metamucil) 1 packet PO DAILY PRN PRN PRN Reason: Constipation Senna/Docusate Sodium (Senokot-S, [place]-Colace) 2 tablet PO BID PRN PRN PRN Reason: Constipation Sodium Chloride () 10 - 40 ml IV UD PRN PRN Reason: SALINE FLUSH Last Admin: 07/26/19 05:37 Dose: 10 ml Documented by: Tizanidine HCl (Zanaflex) 4 mg PO Q8 [facility] Last Admin: 07/26/19 13:36 Dose: 4 mg Documented by: Medical Necessity - Tobacco Use Smoking Status: Never smoker Tobacco Use: Non-smoker Assessment/Plan All Active Problems Intractable low back pain (Acute) #1 intractable back pain-secondary to lumbar strain on a backdrop of degenerative disc disease in the lumbar spine-patient is ambulating better today, continue PT and OT, patient does not want to go to TCU which had been set up for the patient yesterday. She would like to return home if possible. #2 new onset atrial fibrillation-now converted to sinus rhythm-I will continue to monitor the patient on telemetry, there does not appear to be a need for antiarrhythmics or rate control medications. I do not feel there is a need to anticoagulate the patient, she agrees with this approach. #3 degenerative joint disease of the lumbar spine #4 radicular pain in the left buttocks area-most likely from degenerative disc disease of the lumbar spine with nerve impingement this is improved today #5 GERD Code Visit OBSV E&M: 57782 Subsequent observation care L3
[2019-07-27 03:00] VITALS: BP 141/68; PULSE 54; PULSE 59; RESP 16; TEMP 36.8; O2SAT 96
[2019-07-27] MEDS: tiZANidine HCl 2 MG Tablet 4 MG PO (05:57)
[2019-07-27] MEDS: Enoxaparin 40 MG/0.4 ML Syringe SC (05:57)
[2019-07-27 07:14] VITALS: PULSE 50
[2019-07-27] MEDS: Gabapentin 100 MG Capsule PO ×2 (08:05→11:35)
[2019-07-27] MEDS: Aspirin 81 MG TAB.CHEW PO (08:05)
[2019-07-27] MEDS: Famotidine 20 MG Tablet PO (08:06)
[2019-07-27 09:00] VITALS: BP 134/76; PULSE 58; RESP 14; TEMP 36.6; O2SAT 96
--- NOTE | 2019-07-27 12:13 | DCINST_ITS ---
- Discharge Diagnoses Current Active Problems: Current Active and Chronic Problems Intractable low back pain (Acute) GERD (gastroesophageal reflux disease) (Chronic) Anemia (Chronic) Obesity (BMI 30.0-34.9) (Chronic) You will use the following diet at home:: No restrictions Your food should be the consistency of: Regular Your liquids should be the consistency of: Regular/Thin Discharge Activity: Return to Normal Activity Weight Bearing Status: Full weight bearing Allergies/Adverse Reactions: Allergies acetaminophen [From Darvocet-N] Adverse Reaction (Verified 07/23/19 22:17) Other cyclobenzaprine [From Flexeril] Adverse Reaction (Verified 07/23/19 22:17) Other propoxyphene [From Darvocet-N] Adverse Reaction (Verified 07/23/19 22:17) Other Medications to take at Discharge Aspirin 81 mg PO DAILY 07/22/19 Omeprazole 20 mg PO DAILY 07/22/19 Acetaminophen [Tylenol Tablet] 650 mg PO Q6H PRN PRN tab 07/27/19 Tizanidine HCl [Zanaflex] 4 mg PO Q8H PRN PRN #20 tab 07/27/19 The following prescriptions were given: Tizanidine HCl [Zanaflex] 4 mg PO Q8H PRN PRN #20 tab PRN Reason: Spasms Transmission Status: Sent to [facility]/pharmacy #[id number] Primary Care Physician: Douglas Mariscal, WASH OPERATOR-C [Primary Care Provider] - Please follow up with your Primary Care Physician in: next week Test Results: Test results from this visit will be discussed in further detail at your follow- up appointment, if applicable.
[2019-07-27 13:36] VITALS: O2SAT 95
--- NOTE | 2019-07-27 18:02 | DS.PCM_ITS ---
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 Patient did not complain of any motor weakness. Work-up in the emergency room included x-rays of the lower back which showed degenerative changes in the lumbar spine. Patient was placed in observation status on [facility], she was given corticosteroids orally and then through the IV, she was seen by PT and OT, and she had an MRI of her lumbar spine which showed a disc protrusion at L5-S1 but no nerve impingement. 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 It appears that the patient may need to go to short-term care home, approval was obtained for the patient to go to short-term care home but she acutely went into atrial fibrillation on 07/26/2019-she was then given rate controlling medications and transferred to PCU-she converted to normal sinus rhythm shortly afterwards. She underwent an echocardiogram which showed a normal EF and no evidence of valvular disease. It was felt that she was not a candidate to remain on rate limiting medications and was not a candidate to take oral anticoagulants due to low risk. Patient improved after administration of corticosteroids, analgesics, and muscle relaxants. On 07/27/2019, patient was seen and examined: On examination she appeared in good health and spirits. Vital signs as documented. Skin warm and dry and without overt rashes. Neck without JVD. Lungs clear. Heart exam notable for regular rhythm, normal sounds and absence of murmurs, rubs or gallops. Abdomen unremarkable and without evidence of organomegaly, masses, or abdominal aortic enlargement. Extremities nonedematous. Neuro: Cranial nerves II through XII are grossly intact, no focal motor deficits were noted, sensation to light touch and pinprick is intact. Psych: Patient is alert and oriented x3, she does not appear anxious or depressed On 07/27/2019, patient was discharged home in stable condition, I did not feel the patient needed outpatient physical therapy, she was instructed to follow-up with her PCP this week to see if she requires PT and OT as an outpatient. - Physical Exam Vitals/I&O's: Vital Signs Temp Pulse Resp BP Pulse Ox 97.8 F 58 L 14 134/76 H 95 07/27/19 09:00 07/27/19 09:00 07/27/19 09:00 07/27/19 09:00 07/27/19 13:36 Oxygen Flow Rate (L/min) 2 Oxygen Delivery Method Room Air Weight: 86.636 kg Body Mass Index (BMI) 31.8 Intake and Output for Last 24 Hours 07/25/19 07/26/19 07/27/19 23:59 23:59 23:59 Intake Total 600 / 600 1770 / 2070 1300 / 1300 Output Total 2550 / 2550 1000 / 1000 1700 / 1700 Balance -1950 / -1950 770 / 1070 -400 / -400 Microbiology Past 72 Hours 07/24/19 03:45 Urine, Clean Catch Urine Culture - Final Streptococcus agalactiae (B) Discharge Activity: Return to Normal Activity Weight Bearing Status: Full weight bearing Home Medications: Medications to take at Discharge Aspirin 81 mg PO DAILY 07/22/19 Omeprazole 20 mg PO DAILY 07/22/19 Acetaminophen [Tylenol Tablet] 650 mg PO Q6H PRN PRN tab 07/27/19 Tizanidine HCl [Zanaflex] 4 mg PO Q8H PRN PRN #20 tab 07/27/19 Following Prescrptions Were Given to Patient: Tizanidine HCl [Zanaflex] 4 mg PO Q8H PRN PRN #20 tab PRN Reason: Spasms Transmission Status: Received by [facility]/pharmacy #[id number] Primary Care Physician: Douglas Mariscal, CLAUDIA-C [Primary Care Provider] - Please follow up with your Primary Care Physician in: next week Disposition: Home Minutes spent on discharge:: 31 Patient Condition:: Stable Medical Necessity - Tobacco Use Smoking Status: Never smoker Tobacco Use: Non-smoker Meaningful Use Info Meaningful Use Diagnoses (Choose all that apply): None applicable Code Visit OBSV E&M: 88322 Observation care discharge
== END 2019-07-27 12:15 | disposition home or self-care (01) ==
LOC: ED 23:09 → MS2 07-24 02:31 → MS3 07-25 16:10 → PCU 07-26 08:45
PROVIDERS: Admitting Provider Family Medicine; Emergency Provider Emergency Medicine; Family Provider Nurse Practitioner Family; PCP Nurse Practitioner Family; Visit Provider Internal Medicine
DX: S39.012A Strain of muscle, fascia and tendon of lower back, initial encounter (principal); X50.0XXA Overexertion from strenuous movement or load, initial encounter; Y93.89 Activity, other specified; Y92.9 Unspecified place or not applicable; K21.9 Gastro-esophageal reflux disease without esophagitis; I48.91 Unspecified atrial fibrillation; Z79.899 Other long term (current) drug therapy; Z79.82 Long term (current) use of aspirin; E66.9 Obesity, unspecified; Z68.31 Body mass index [BMI] 31.0-31.9, adult; Z71.3 Dietary counseling and surveillance; D64.9 Anemia, unspecified; M51.16 Intervertebral disc disorders with radiculopathy, lumbar region
CPT/HCPCS: 36415; 72110; 72148; 80048; 81001; 85025; 87077; 87086; 87088; 87186; 93005; 93306; 96361; 96372; 96374; 96375; 96376; 97162; 97165; 97530; 99218; 99251; 99284; J7030; A4216; G0378; G0463

== ENCOUNTER 2020-01-27 02:38 | Emergency (ER) | payer MEDICARE, SELFPAY ==
[2019-07-24 02:53] VITALS: BMI 31.8
[2020-01-27 02:39] VITALS: BP 174/96; PULSE 140; RESP 16; TEMP 36.8; O2SAT 99; BMI 29.7
--- NOTE | 2020-01-27 03:09 | EKG12_ITS ---
Test Reason : DYSRHYTHMIA Blood Pressure : / mmHG Vent. Rate : 072 BPM Atrial Rate : 072 BPM P-R Int : 138 ms QRS Dur : 082 ms QT Int : 380 ms P-R-T Axes : 016 -05 065 degrees QTc Int : 416 ms Normal sinus rhythm Normal ECG Confirmed by USHA SCHNEIDER ([id number]), editor farm journal GERARD HAMILTON ([id number] on 01/29/2020 2:35:26 PM Referred By: NESTOR Confirmed By:USHA SCHNEIDER
--- NOTE | 2020-01-27 03:10 | ED.VIS.GEN ---
History of Present Illness Chief Complaint: Palpitations Informant: Patient Onset: Hours - 1-2 Context: Sudden Onset - While lying supine in bed awake Timing: Continuous Quality: Skipping, irregular, racing heartbeat Location: Chest Current Severity: Moderate Maximum Severity: Moderate Worsened by: Nothing in particular Relieved by: Nothing, has been continuous Associated Symptoms: None Narrative: Patient had sudden onset of palpitations. No recent illnesses or injury. She denies any associated lightheadedness or near syncope, chest discomfort, dyspnea, leg swelling. She had a dysrhythmia long ago that she thinks was atrial fibrillation. She is on no medication for that, or anything else right now. - Past Medical History (1) Anemia Status: Chronic (2) GERD (gastroesophageal reflux disease) Status: Chronic Past Medical History - Allergies and Home Meds Allergies/Adverse Reactions: Allergies acetaminophen [From Darvocet-N] Adverse Reaction (Verified 01/27/20 02:39) Other cyclobenzaprine [From Flexeril] Adverse Reaction (Verified 01/27/20 02:39) Other propoxyphene [From Darvocet-N] Adverse Reaction (Verified 01/27/20 02:39) Other Primary Care Physician: Sudhir Tejada MD [STAFF PHYSICIAN] - (call for appt) Douglas Mariscal NP-C [Primary Care Provider] - Surgical History: cholecystectomy, hysterectomy Smoking Status: Never smoker Drugs: None - Family History Maternal Family History: Reports: - - Patient notes a maternal family history of heart disease, coronary disease status post CABG. Paternal Family History: Reports: - - Patient states she does not know her paternal family history. Review of Systems General: Denies: Chills, Fever, Sweats Eyes: Denies: Visual changes - bilaterally, Diplopia ENT: Denies: Rhinorrhea, Sore throat Cardiovascular: Reports: Palpitations, Heart racing. Denies: Chest pain Respiratory: Denies: Dyspnea, Cough, Dyspnea on exertion Gastrointestinal: Denies: Abdominal pain, Nausea, Vomiting, Diarrhea, Melena, Hematochezia Genitourinary: Denies: Dysuria, Hematuria, Frequency Musculoskeletal: Denies: Back pain, Swelling, Extremity Pain Skin: Denies: Rash, Wounds Neurological: Denies: Headache, Weakness, Numbness Physical Exam Vital Signs/Narrative: Vital Signs Temp Pulse Resp BP Pulse Ox 01/27/20 02:39 98.2 F 140 H 16 174/96 H 99 Inital Vital Signs reviewed: Yes General: Well nourished, Well developed, No Acute Distress Head: Normocephalic, Atraumatic Eyes: Perrl, EOMI ENT: Moist mucous membranes, No rhinorrhea Neck: Supple, Nontender, No JVD Cardiovascular: No murmurs, Irregular, Tachycardia Respiratory: No distress, CTA bilaterally, Chest nontender Abdomen: Soft, Nontender, Nondistended, Normal bowel sounds Back: Nontender, Normal Inspection Extremities: Nontender, No edema. Negative for: Calf Tenderness Skin: Normal color, No rash, No Trauma Neurological: Alert, Oriented x3, Cranial nerves II-XII grossly intact, Normal Strength, Normal Sensation Psychological: Normal affect, Normal Mood Diagnostic/Tx/Re-eval Laboratory Results 01/27/20 01/27/20 03:30 03:30 WBC 7.9 RBC 4.78 Hgb 13.5 Hct 42.0 MCV 87.9 MCH 28.2 MCHC 32.1 RDW Std Deviation 45.1 H RDW Coeff of Christo 14.1 Plt Count 262 MPV 10.8 Immature Gran % (Auto) 0.300 Neut % (Auto) 47.0 Lymph % (Auto) 33.5 [place] % (Auto) 10.7 H Eos % (Auto) 8.0 H Baso % (Auto) 0.5 Absolute Neuts (auto) 3.7 Absolute Lymphs (auto) 2.65 Nucleated RBC % 0 Sodium 140 Potassium 3.6 Chloride 109 H Carbon Dioxide 27.0 Anion Gap 4 L BUN 25 H Creatinine 0.86 Estim Creat Clear Calc 57.12 Est GFR (MDRD) Af Amer 84 Est GFR (MDRD) Non-Af 70 BUN/Creatinine Ratio 29.1 H Glucose 115 H Calcium 10.1 Troponin I < 0.015 - Rhythm Strip Rhythm Strip: A-fib Rate: 120 Ectopy: None - EKG Initial EKG Interpretation: No Acute Injury Pattern, Atrial Fibrillation, Non-Specific ST Changes Prior: Changed - nsr Follow-up EKG Interpretation: Sinus Rhythm, No Acute Injury Pattern - normal EKG - Medical Decision Making Work-up as above, patient initially in rapid A. fib with stable vital signs, actually hypertensive. She was given Cardizem 20 mg. On reevaluation she converted. Repeat EKG shows sinus rhythm no acute injury pattern. She feels well and asymptomatic. Discussed with cardiology Dr. Tejada, he recommends Toprol-XL 50 mg daily and follow-up as an outpatient, holding off on anticoagulants at this time. Patient is comfortable with that plan. ED Disposition - Plan for ED Patient: Disposition: Home or Assisted Living Diagnosis: Atrial fibrillation with RVR Instructions: ED AFIB Prescriptions: Metoprolol Succinate [Toprol Xl] 50 mg PO DAILY #30 tab.er.24h Transmission Status: Received by [facility]/pharmacy #[id number] Referrals: Douglas Mariscal, CLAUDIA-Sherman [Primary Care Provider] - Sudhir Tejada MD [STAFF PHYSICIAN] - (call for appt)
[2020-01-27] MEDS: dilTIAZem 25 MG/5 ML Vial 20 MG IV BOLUS (03:25)
[2020-01-27 03:29] VITALS: PULSE 88; RESP 15; O2SAT 99
[2020-01-27 03:39] LABS: Absolute Lymphocyte Count 2.65 X10^3/uL (0.83-4.51); Absolute Neutrophil Count 3.7 X10^3/uL (2.0-7.7); Basophil# 0.04 X10^3/uL; Basophil% 0.5 % (0-1); Eosinophil# 0.63 X10^3/uL; Hemoglobin 13.5 g/dL (12.0-15.0); Lymphocyte # 2.65 X10^3/ul (4.0); Lymphocyte % 33.5 % (19-41); Mean Corp Hgb Conc 32.1 g/dL (32-36); Mean Corpuscular Hgb 28.2 pg (27.0-32.0); Mean Corpuscular Volume 87.9 fL (81-99); Mean Platelet Vol. 10.8 fl (6.2-12.0); Monocyte# 0.85 X10^3/uL; Monocyte% 10.7 % (0-10); NRBC Flagged by Analyzer 0 % (0-5); Neutrophil # 3.73 X10^3/uL (2.7-7.7); Platelet Count 262 K/mm3 (150-450); RBC Distribution Width CV 14.1 % (11.6-14.6); RBC Distribution Width SD 45.1 fl (35.1-43.9); Red Blood Count 4.78 M/mm3 (4.2-5.4); White Blood Count 7.9 K/mm3 (4.4-11.0)
[2020-01-27 03:54] LABS: Anion Gap 4 (5-15); BUN 25 mg/dL (7-18); BUN/Creat Ratio 29.1 RATIO (10-20); Calcium,Total 10.1 mg/dL (8.5-10.1); Chloride 109 mmol/L (98-107); Creatinine, Serum 0.86 mg/dL (0.55-1.02); EST Glomerular Filtration Rate 70 mL/min (>60); Est Glom Filt Rate - Afr Amer 84 mL/min (>60); Estimated Creatinine Clearance 57.12 ml/min; Glucose 115 mg/dL (74-106); Potassium 3.6 mmol/L (3.5-5.1); Sodium Level 140 mmol/L (136-145)
--- NOTE | 2020-01-27 05:22 | EKG12_ITS ---
Test Reason : DYSRHYTHMIA Blood Pressure : / mmHG Vent. Rate : 120 BPM Atrial Rate : 119 BPM P-R Int : 000 ms QRS Dur : 082 ms QT Int : 302 ms P-R-T Axes : 000 -11 117 degrees QTc Int : 426 ms Atrial fibrillation Nonspecific ST and T wave abnormality Abnormal ECG Confirmed by GLENDY JEREZ, JOSE ELIAS ([id number]), associate editor GERARD HAMILTON ([id number]) on 01/29/2020 2:37:31 PM Referred By: NESTOR Confirmed By:JOSE ELIAS PIKE MD
[2020-01-27 05:53] VITALS: BP 124/74; BP 129/74; PULSE 71; RESP 16; O2SAT 94
== END 2020-01-27 06:01 | disposition home or self-care (01) ==
LOC: ED 05:45
PROVIDERS: Emergency Provider Emergency Medicine; PCP Nurse Practitioner Family
DX: I48.91 Unspecified atrial fibrillation (principal); D64.9 Anemia, unspecified; K21.9 Gastro-esophageal reflux disease without esophagitis; Z79.82 Long term (current) use of aspirin; Z79.899 Other long term (current) drug therapy; Z90.710 Acquired absence of both cervix and uterus; Z90.49 Acquired absence of other specified parts of digestive tract
CPT/HCPCS: 80048; 84484; 85025; 93005; 96374; 99284

== ENCOUNTER → 2020-02-25 12:11 | Outpatient (CLI) | payer MEDICARE, SELFPAY ==
[2020-02-25 11:16] VITALS: BMI 31.6
[2020-02-25 14:14] LABS: T4 Total, Thyroxin 8.2 ug/dL (4.8-13.9)
== END ==
PROVIDERS: PCP Nurse Practitioner Family; Referring Provider Internal Medicine Cardiovascular Disease; Visit Provider Internal Medicine Cardiovascular Disease
DX: I48.0 Paroxysmal atrial fibrillation (principal)
CPT/HCPCS: 36415; 84436; 84443

== ENCOUNTER → 2020-03-22 09:55 | Outpatient (CLI) | payer MEDICARE, SELFPAY ==
[2020-02-25 11:16] VITALS: BMI 31.6
--- NOTE | 2020-03-22 11:13 | STRESSREP ---
Stress Test Report Exercise myocardial perfusion stress test. 70-year-old lady with a history of atrial fibrillation palpitations and hypertension. Stress protocol: Resting EKG demonstrates normal sinus rhythm with a rate of 73 bpm normal intervals are noted resting blood pressure is 158/80 mmHg. The patient exercised according to regular Theodore protocol for a total duration of 6 minutes the maximum heart rate attained was 151 bpm which was 99% of max impacted heart rate the maximum workload was 7 metabolic equivalents. At rest there were no ST or T wave changes noted suggest ischemia at peak exercise upsloping ST depression was noted in leads II, III and aVF of approximately 0.9 mm and in V5 and V6 which is approximately 0.35 mm. The above did not meet the criteria for ischemia. No clinical angina was noted the test was terminated due to attainment of target heart rate as well as dyspnea. No atrial fibrillation was noted. Conclusion 1 Exercise stress test with no EKG criteria for ischemia at a moderate workload. No atrial fibrillation noted.
== END ==
PROVIDERS: PCP Nurse Practitioner Family; Referring Provider Physician Assistant Medical; Visit Provider Physician Assistant Medical
DX: R94.31 Abnormal electrocardiogram [ECG] [EKG] (principal); I48.0 Paroxysmal atrial fibrillation; R00.2 Palpitations; I10 Essential (primary) hypertension; I48.92 Unspecified atrial flutter
CPT/HCPCS: 93017

== ENCOUNTER 2022-12-30 02:04 | Emergency (ER) | payer MEDICARE, SELFPAY ==
[2022-12-30 02:05] VITALS: BP 164/90; PULSE 134; RESP 18; TEMP 36.5; O2SAT 99; BMI 32.5
[2022-12-30 02:36] LABS: Absolute Lymphocyte Count 2.95 X10^3/uL (0.83-4.51); Absolute Neutrophil Count 3.7 X10^3/uL (2.0-7.7); Basophil# 0.05 X10^3/uL; Basophil% 0.6 % (0-1); Eosinophil# 0.56 X10^3/uL; Eosinophils% 6.9 % (0-5); Lymphocyte # 2.95 X10^3/ul (0.83-4.51); Lymphocyte % 36.2 % (19-41); Mean Corp Hgb Conc 31.8 g/dL (32-36); Mean Corpuscular Hgb 29.1 pg (27.0-32.0); Mean Corpuscular Volume 91.5 fL (81-99); Mean Platelet Vol. 11.3 fl (6.2-12.0); Monocyte# 0.83 X10^3/uL; Monocyte% 10.2 % (0-10); NRBC Flagged by Analyzer 0 % (0-5); Neutrophil # 3.74 X10^3/uL (2.7-7.7); Neutrophil % 45.9 % (47-70); Platelet Count 266 K/mm3 (150-450); RBC Distribution Width CV 14.3 % (11.6-14.6); RBC Distribution Width SD 48.1 fl (35.1-43.9); Red Blood Count 4.81 M/mm3 (4.2-5.4); White Blood Count 8.2 K/mm3 (4.4-11.0)
[2022-12-30 02:40] VITALS: BP 136/69; PULSE 62; RESP 15; O2SAT 99
[2022-12-30 03:08] LABS: Anion Gap 4 (5-15); BUN 20 mg/dL (7-18); BUN/Creat Ratio 22.5 RATIO (10-20); Calcium,Total 10.8 mg/dL (8.5-10.1); Chloride 110 mmol/L (98-107); Creatinine, Serum 0.89 mg/dL (0.55-1.02); EST Glomerular Filtration Rate 67 mL/min (>60); Est Glom Filt Rate - Afr Amer 81 mL/min (>60); Estimated Creatinine Clearance 52.93 ml/min; Glucose 120 mg/dL (74-106); Magnesium 2.1 mg/dL (1.6-2.6); Sodium Level 138 mmol/L (136-145); Thyroid Stim Hormone (TSH) 3.39 uIU/mL (0.358-3.74)
[2022-12-30 03:30] VITALS: BP 113/62; PULSE 67; RESP 16; O2SAT 97
--- NOTE | 2022-12-30 03:30 | EDS_ITS ---
HPI History of Present Illness Chief Complaint: Palpitations Narrative Narrative: Patient is a 72-year-old female with past medical history of hypertension and paroxysmal atrial fibrillation currently on Eliquis. She states that her hypertension and A-fib is controlled with metoprolol. She states she typically is in sinus rhythm and has not had an A-fib bout for about 2 years. She states this evening she was lying down getting ready for bed when she began to feel her heart race. She states it felt similar nature to her previous bouts of A-fib and she took her heart rate and it was elevated approximately 130. She states she waited roughly an hour to see if the symptoms would resolve but they did not do so and secondary to this she comes in for evaluation. She denies any excessive stimulant use or illicit drug use which could have brought on the cardiac dysrhythmia [facility] Medical History (Updated 12/30/22 @ 08:[address] Jignesh Flores, DO) Anemia Back pain Essential (primary) hypertension GERD (gastroesophageal reflux disease) Obesity (BMI 30.0-34.9) RADHA on CPAP Paroxysmal atrial fibrillation Home Medications omeprazole 20 mg capsule,delayed release 20 mg PO DAILY reflux 07/22/19 [History Last Taken 07/23/19] loratadine 10 mg tablet 10 mg PO DAILY 01/27/20 [History Last Taken Unknown] [id number]-olu-eunjl ac 400 mcg-calcium carb 500 mg-vit K1 20 mcg tablet 1 ea PO DAILY 01/27/20 [History Last Taken Unknown] apixaban 5 mg tablet (Eliquis) 5 mg PO BID #180 tabs 02/01/22 [Rx Last Taken Unknown] metoprolol succinate 50 mg tablet,extended release 24 hr 50 mg PO DAILY #90 tabs 02/01/22 [Rx Last Taken Unknown] losartan 25 mg tablet 25 mg PO DAILY 12/30/22 [History Last Taken Unknown] Allergy/AdvReac Type Severity Reaction Status Date / Time lisinopril AdvReac Intermediate Dry, Verified 12/30/22 02:05 hacking cough pseudoephedrine AdvReac Intermediate arrythmia Verified 12/30/22 02:05 [From Sudafed] acetaminophen AdvReac Other Verified 12/30/22 02:05 [From Darvocet-N] cyclobenzaprine AdvReac Other Verified 12/30/22 02:05 [From Flexeril] propoxyphene AdvReac Other Verified 12/30/22 02:05 [From Darvocet-N] Family History Mother CAD (coronary artery disease), Onset Age: 70 CABG Heart disease CVA (cerebral vascular accident) Grandmother CVA (cerebral vascular accident) Surgical History History of cholecystectomy History of hysterectomy Social History Smoking Status: Never smoker alcohol intake: never substance use type: does not use caffeine: Yes Type: tea Number of servings: 1 ROS ROS ED Constitutional Constitutional ED: Denies chills or fever(s) ENT ENT ED: Denies sore throat Cardiovascular Cardiovascular: Reports palpitations and racing heartbeat; Denies chest pain Respiratory/Chest Respiratory/Chest: Denies cough or dyspnea Gastrointestinal Gastrointestinal: Denies abdominal pain, diarrhea, nausea or vomiting Genitourinary Genitourinary ED: Denies dysuria Musculoskeletal Musculoskeletal: Denies myalgias Integumentary Denies rash Neurologic Neurologic: Denies headache(s) Hematologic/Lymphatic Hematologic/Lymphatic: Reports easy bleeding and easy bruising EXAM Physical Exam Const Vital Signs: 12/30/22 02:05 12/30/22 02:05 12/30/22 02:40 Temperature 97.7 F L Temperature Source Oral Pulse Rate 134 H 62 Respiratory Rate 18 15 Respiratory Effort Normal Non-Labored Blood Pressure 164/90 H 136/69 H Blood Pressure Mean 114 91 Pulse Ox 99 99 Oxygen Delivery Method Room Air Room Air 12/30/22 03:30 12/30/22 03:53 Temperature Temperature Source Pulse Rate 67 67 Respiratory Rate 16 16 Respiratory Effort Blood Pressure 113/62 113/62 Blood Pressure Mean 79 Pulse Ox 97 97 Oxygen Delivery Method Room Air Positive well nourished, well developed and obese General Appearance ED: well developed Nutritional Appearance: obese HEENT HEENT Narrative: Normocephalic atraumatic Eyes PERRL and EOMs intact bilaterally Neck supple and no JVD Resp normal respiratory effort and clear to auscultation bilaterally Cardio Rate: other Other Details: Irregularly irregular rhythm with tachycardic rate consistent with atrial fibrillation with RVR GI normal to inspection, nondistended, normoactive bowel sounds, non-tender, non- distended and no masses Auscultation: normoactive bowel sounds Palpation: soft Extremity normal to inspection Extremity Narrative: Negative Homans' sign bilaterally Neuro oriented x3 and CN's II-XII intact bilaterally Sensorium / Orientation: alert Psych mental status grossly normal Skin no rashes or lesions noted MDM MDM MDM Narrative Medical decision making narrative: Patient presented to the ER in A-fib with RVR but otherwise had stable vital. She has a known history of paroxysmal A-fib and is on Eliquis and concern for DVT/PE is low. As patient has not been in a bout of A-fib for approximately 2 years I did elect to perform basic laboratory studies to check for a possible cause. There is no anemia or signs of acute kidney injury or electrolyte derangement or thyroid disorder. Cardizem was ordered but prior to receiving this the patient spontaneous converted to sinus rhythm. She was watched in the ER and remained in sinus rhythm and as work-up is negative and patient has spontaneously converted there is no need for further evaluation in the ER and patient is safe for discharge History & Record Review Discussion w/independent historian: Patient and Significant other Lab Data Attestation: I reviewed the patient's lab results. Labs: Laboratory Results - last 24 hr 12/30/22 12/30/22 02:14 02:14 WBC 8.2 RBC 4.81 Hgb 14.0 Hct 44.0 MCV 91.5 MCH 29.1 MCHC 31.8 L RDW Std Deviation 48.1 H RDW Coeff of Christo 14.3 Plt Count 266 MPV 11.3 Immature Gran % (Auto) 0.200 Neut % (Auto) 45.9 L Lymph % (Auto) 36.2 [place] % (Auto) 10.2 H Eos % (Auto) 6.9 H Baso % (Auto) 0.6 Absolute Neuts (auto) 3.7 Absolute Lymphs (auto) 2.95 Nucleated RBC % 0 Sodium 138 Potassium 4.0 Chloride 110 H Carbon Dioxide 24.0 Anion Gap 4 L BUN 20 H Creatinine 0.89 Estim Creat Clear Calc 52.93 Est GFR (MDRD) Af Amer 81 Est GFR (MDRD) Non-Af 67 BUN/Creatinine Ratio 22.5 H Glucose 120 H Calcium 10.8 H Magnesium 2.1 TSH 3.39 Discharge Plan Triage Chief Complaint: Palpitations ED Provider: Jignesh Flores Dx/Rx/DC Orders Clinical Impression: Paroxysmal A-fib, Essential (primary) hypertension Instructions: AFib Dc Prescriptions: No Action omeprazole 20 MG capsule,delayed release(DR/EC) 20 mg PO DAILY loratadine 10 MG tablet 10 mg PO DAILY [id number]-ktuce-calcium carb-K1 1 EACH tablet 1 ea PO DAILY losartan 25 mg tablet 25 mg PO DAILY Eliquis 5 mg tablet 5 mg PO BID Qty: 180 3RF metoprolol succinate 50 mg tablet extended release 24 hr 50 mg PO DAILY Qty: 90 3RF Primary Care Provider: Douglas Mariscal NP Referrals: Douglas Mariscal NP, PROFESSOR OF [employer]-C [Primary Care Provider] - Activity Restrictions/Additional Instructions: Please continue all of your medications as directed by your doctor. If you go back into atrial fibrillation once again if your heart rate is fast/above 100 and your blood pressure is greater than 120/80 you may try taking one of your metoprolol pills to see if this helps with symptoms. If there is no improvement or you have any further concerns or worsening of symptoms please return for repeat evaluation Disposition Disposition: Home, Self Care Discharge Date/Time: 12/30/22 03:54
[2022-12-30 03:53] VITALS: BP 113/62; PULSE 67; RESP 16; O2SAT 97
== END 2022-12-30 03:54 | disposition home or self-care (01) ==
PROVIDERS: Emergency Provider Emergency Medicine; PCP Nurse Practitioner Family; Visit Provider Emergency Medicine
DX: I48.0 Paroxysmal atrial fibrillation (principal); I10 Essential (primary) hypertension; K21.9 Gastro-esophageal reflux disease without esophagitis; G47.33 Obstructive sleep apnea (adult) (pediatric); E66.9 Obesity, unspecified; Z79.01 Long term (current) use of anticoagulants; Z79.899 Other long term (current) drug therapy
CPT/HCPCS: 80048; 83735; 84443; 85025; 93005; 96360; 99284; J7040; A4216

== ENCOUNTER → 2023-05-09 | Outpatient (CLI) | payer MEDICARE, SELFPAY ==
--- NOTE | 2023-05-09 06:47 | ECHOD_ITS ---
Reason For Study: AFIB Procedure This was a 2D Doppler, Color Flow transthoracic echocardiogram. Exam performed in department. Left Ventricle Normal LV size. Left ventricular systolic function is normal. The estimated ejection fraction is 60 %. No regional wall motion abnormalities noted. Right Ventricle Normal RV size. Normal systolic function. Atria Normal left atrium. Normal right atrium. Mitral Valve Normal mitral valve. Tricuspid Valve Normal tricuspid valve. Mild tricuspid valve insufficiency. Pulmonary artery systolic pressure is 34 mmHg. Aortic Valve Normal aortic valve. Mild (1+) aortic valve insufficiency. Pulmonic Valve Normal pulmonic valve. Great Vessels Normal aortic root. The pulmonary artery is normal size. Normal inferior vena cava. Pericardium/Pleural No pericardial effusion. MMode/2D Measurements & Calculations LVIDd: 4.5 cm IVSd: 0.74 cm Ao root diam: 2.7 cm LVIDs: 2.6 cm LVPWd: 1.1 cm RVDd: 2.4 cm FS: 42.2 % LAV(MOD-bp): 61.8 ml LVAd ap4: 26.8 cm2 SV(MOD-sp4): 57.4 ml LAV(MOD-bp) Indexed: 31.7 ml/m2 LVLd ap4: 7.2 cm LAV(MOD-sp2): 64.0 ml EDV(MOD-sp4): 80.1 ml LAV(MOD-sp4): 57.2 ml EDV(sp4-el): 85.0 ml LVAs ap4: 12.2 cm2 LVLs ap4: 5.5 cm ESV(MOD-sp4): 22.8 ml ESV(sp4-el): 23.1 ml EF(MOD-sp4): 71.6 % EF(sp4-el): 72.8 % SV(sp4-el): 61.9 ml LA A4 area: 20.3 cm2 LA dimension(2D): 4.0 cm RA A4 area: 13.3 cm2 TAPSE: 2.1 cm Time Measurements MV dec time: 0.20 sec Doppler Measurements & Calculations MV E max oli: 113.7 cm/sec Lat Peak E' Oli: 13.5 cm/sec Med Peak E' Oli: 8.9 cm/sec MV A max oli: 94.5 cm/sec E/E' lat: 8.4 E/E' med: 12.8 MV E/A: 1.2 MV V2 max: 114.9 cm/sec Ao V2 max: 175.6 cm/sec MV max P.3 mmHg MV dec slope: 573.9 cm/sec2 Ao max P.3 mmHg MV V2 mean: 78.7 cm/sec Ao V2 mean: 122.1 cm/sec MV mean P.7 mmHg Ao mean P.8 mmHg MV V2 VTI: 35.7 cm Ao V2 VTI: 46.1 cm AV (velocity ratio): 0.72 AI max oli: 463.9 cm/sec LV V1 max: 127.9 cm/sec PA V2 max: 95.6 cm/sec AI max P.1 mmHg LV V1 max P.6 mmHg PA V2 mean: 74.1 cm/sec LV V1 mean P.7 mmHg AI dec slope: 317.0 cm/sec2 LV V1 mean: 90.7 cm/sec AI P1/2t: 428.6 msec LV V1 VTI: 33.1 cm TR max oli: 291.3 cm/sec TR max P.0 mmHg ECHO/Echo Complete Interpretation Summary Normal LV size. Left ventricular systolic function is normal. The estimated ejection fraction is 60 %. Mild (1+) aortic valve insufficiency. Pulmonary artery systolic pressure is 34 mmHg. Ordering Physician: Sudhir Tejada Referring Physician: Sudhir Tejada Performed By: Ashleigh Woods RCS
--- NOTE | 2023-05-09 15:22 | STRESSREP ---
Stress Test Report Exercise myocardial perfusion stress test. 73-year-old lady with a history of A-fib Stress protocol: Resting EKG demonstrates normal sinus rhythm with a rate of 65 bpm resting blood pressure is 124/76 mmHg. The patient exercised according to the regular Theodore protocol for a total duration of 4 minutes attaining a maximum heart rate of 144 bpm which was 96% of maximum predicted heart rate; the maximum workload was 6.9 metabolic equivalents. At rest there were no ST or T wave changes noted to suggest ischemia and at peak exercise upsloping ST changes only were noted which did not meet the criteria for ischemia. No clinical angina was noted the test was terminated due to the target heart rate being achieved/fatigue. The peak blood pressure was 178/72 mmHg. Rate-pressure product was 24,400. Myocardial perfusion protocol. 10.7 mCi of technetium 99m sestamibi was injected at rest. The patient exercised according to regular Theodore protocol for total duration of 4 minutes and at peak exercise 33.9 mCi of technetium 99m sestamibi was injected stress images were obtained stress and rest images were reconstructed in comparing the short axis vertical long and horizontal long axis. Perfusion SPECT analysis: Review of the stress images demonstrate normal uptake of tracer noted in all areas of the myocardium. The resting images similarly demonstrate normal uptake of tracer noted in all areas of the myocardium. No areas of reversibility are noted to suggest ischemia no previous infarct was noted. Conclusion: Normal exercise myocardial perfusion stress test at a moderate workload Preserved ejection fraction.
== END | disposition home or self-care (01) ==
PROVIDERS: PCP Nurse Practitioner Family; Referring Provider Internal Medicine Cardiovascular Disease; Visit Provider Internal Medicine Cardiovascular Disease
DX: I48.0 Paroxysmal atrial fibrillation (principal); R06.83 Snoring; I51.89 Other ill-defined heart diseases
CPT/HCPCS: 78452; 93017; 93306; A9500; A4216